=== PATIENT | female | born 2000 | race African-American/Black ===

== ENCOUNTER 2021-03-13 20:12 | Emergency (ER) | payer MEDICAID, OTHER ==
--- NOTE | 2021-03-13 20:31 | Diagnostic Imaging Report ---
EXAM: Foot 3 view right. INDICATION: Right heel pain. COMPARISON: None. FINDINGS: No fracture or malalignment. Soft tissue shadows are unremarkable. IMPRESSION: Negative right foot radiographs. Dictated by: Dictated on workstation # [id number]
[2021-03-13 21:03] VITALS: BP 140/89
--- NOTE | 2021-03-13 21:06 | ED Lower Extremity ---
General Chief Complaint: Lower Extremity Stated Complaint: RT FOOT HEEL PAIN Nursing Triage Note: Pt complaining of right heel/foot pain. Pt states the pain started after her basketball game tonight and that it hurts to walk. Pt denies any injury Source: patient Exam Limitations: no limitations History of Present Illness Date Seen by Provider: Mar 13, 2021 Time Seen by Provider: 20:15 Initial Comments Patient is a 20-year-old female who presents with right ankle sprain well playing basketball. She reports tenderness pain and swelling over the hindfoot with pain on palpation and weightbearing. She denies direct trauma or injury. This occurred just prior to ED arrival. Denies ankle, ríos or knee pain. No other symptoms or complaints Onset: just prior to arrival Pain/Injury Location: right foot Method of Injury: sports injury Modifying Factors: Improves With Other Allergies and Home Medications Allergies Coded Allergies: Penicillins (Verified Allergy, Unknown, 03/13/21) Patient Home Medication List Home Medication List Reviewed: Yes Review of Systems Constitutional: no symptoms reported Musculoskeletal: other (R Foot pain) Past [place]-Ayqlqw-Wueois Hx Patient Social History Tobacco Use?: No Use of E-Cig and/or Vaping dev: No Substance use?: No Alcohol Use?: No Pt feels they are or have been: No Physical Exam Vital Signs Vital Signs - First Documented 03/13/21 20:16 Temp 36.4 Pulse 88 Resp 16 B/P (MAP) 140/89 (106) Pulse Ox 100 O2 Delivery Room Air Capillary Refill : Less Than 3 Seconds Height, Weight, BMI Height: '" Weight: lbs. oz. kg; BMI Method: General Appearance: no apparent distress Feet: right foot pain, right foot soft tissue tenderness Neurologic/Psychiatric: alert, oriented x 3 Skin: normal color Progress/Results/Core Measures Results/Orders My Orders Orders - IRIS VALDAEZ DO Foot 3 View Right (03/13/21 20:18) Vital Signs/I&O 03/13/21 20:16 Temp 36.4 Pulse 88 Resp 16 B/P (MAP) 140/89 (106) Pulse Ox 100 O2 Delivery Room Air Blood Pressure Mean: 106 Departure Communication (Admissions) X-ray right foot: No obvious fracture per radiology report Soft tissue pain/swelling right foot. Recommendations are supportive care with PCP follow-up as needed. Impression Primary Impression: Right foot sprain Disposition: 01 HOME, SELF-CARE Condition: Stable Departure-Patient Inst. Decision time for Depature: 21:11 Patient Instructions: Foot Sprain (DC) Add. Discharge Instructions: Please wear Rakesh wrap, orthopedic shoe and take ibuprofen for pain. Avoid sports until cleared by your primary care physician or pet trainer. All discharge instructions reviewed with patient and/or family. Voiced understanding. IRIS VALADEZ DO Mar 13, 2021 21:06
== END 2021-03-13 21:20 | disposition home or self-care (01) ==
LOC: ER FS 20:14
DX: S93.601A Unspecified sprain of right foot, initial encounter (principal); W09.8XXA Fall on or from other playground equipment, initial encounter; Y93.67 Activity, basketball
CPT/HCPCS: 73630

== ENCOUNTER 2022-05-11 16:06 | Emergency (ER) | payer MEDICAID ==
[~2022-05-11] VITALS: Ht 167.7 cm; Wt 79.4 kg
[2022-05-11 16:10] VITALS: BP 120/81
--- NOTE | 2022-05-11 16:18 | ED EENT ---
History of Present Illness General Chief Complaint: Ear Problems Stated Complaint: RIGHT EARACHE History of Present Illness Date Seen by Provider: May 11, 2022 Time Seen by Provider: 16:13 Initial Comments 22-year-old female presents with right ear pain, right pain in her neck with some swollen lymph nodes. She reports that started last night. No sore throat, no fevers no chills no nausea vomiting cough or other systemic complaints. Allergies and Home Medications Allergies Coded Allergies: Penicillins (Verified Allergy, Unknown, 03/13/21) Patient Home Medication List Home Medication List Reviewed: Yes Review of Systems Review of Systems Constitutional: No chills, No fever Ears: Pain Nose: no symptoms reported Mouth: no symptoms reported Throat: no symptoms reported Respiratory: No cough, No short of breath Cardiovascular: No chest pain, No palpitations Gastrointestinal: No abdominal pain, No nausea, No vomiting Musculoskeletal: no symptoms reported Skin: no symptoms reported Physical Exam Height, Weight, BMI Height: '" Weight: lbs. oz. kg; BMI Method: General Appearance: WD/WN, no apparent distress Eyes: bilateral eye normal inspection Ears: bilateral ear TM normal Mouth/Throat: normal mouth inspection Neck: lymphadenopathy (R), tender lateral Cardiovascular: normal peripheral pulses, regular rate, rhythm Respiratory: lungs clear, normal breath sounds Gastrointestinal: non tender, soft Neurologic/Psychiatric: alert, normal mood/affect, oriented x 3 Skin: normal color, warm/dry Progress/Results/Core Measures Progress Progress Note : Progress Note Patient with swollen lymph nodes along anterior cervical chain right side. I wi ll start her on some antibiotics. Patient stable and discharged Departure Impression Primary Impression: Lymphadenitis, acute Disposition: 01 HOME, SELF-CARE Condition: Stable Departure-Patient Inst. Referrals: NO,LOCAL PHYSICIAN (PCP/Family) Primary Care Physician Patient Instructions: Lymphadenitis (DC) Add. Discharge Instructions: Please follow-up with your primary care provider in 7 days to ensure resolution of your infection and further evaluation if not cleared All discharge instructions reviewed with patient and/or family. Voiced understanding. Scripts Azithromycin (Azithromycin) 250 Mg Tablet 500 MG PO DAILY for 5 Days, #10 TAB 0 Refills Prov: BROCK DELACRUZ DO 05/11/22 BROCK DELACRUZ DO May 11, 2022 16:18
[2022-05-11] MEDS ORDERED: AZIT250T12 PO (16:21)
== END 2022-05-11 16:22 | disposition home or self-care (01) ==
LOC: EDUNIT# 16:06 → ER FS 16:08
DX: L04.9 Acute lymphadenitis, unspecified (principal); Z88.0 Allergy status to penicillin
CPT/HCPCS: 99282

== ENCOUNTER 2022-05-11 20:24 | Emergency (ER) | payer MEDICAID ==
[~2022-05-11] VITALS: Ht 165.1 cm; Wt 80.7 kg
[~2022-05-11 20:24] MED LIST: AZIT250T12 PO
[2022-05-11 20:27] VITALS: BP 126/84
[2022-05-11] MEDS ORDERED: KETOROLAC 30 MG/ML VIAL IM STA (20:31)
--- NOTE | 2022-05-11 20:38 | ED EENT ---
History of Present Illness General Chief Complaint: Ear Problems Stated Complaint: RIGHT EARACHE Nursing Triage Note: Patient was seen in the ER earlier today for the same complaint. Patient states that she was given antibiotics and she has had 1 dose. Patient states that she is not getting any better and she is having pain in the right ear. Patient took Tylenol 15 minutes prior to arrival. Patients last Ibuprofen dose was last night. History of Present Illness Date Seen by Provider: May 11, 2022 Time Seen by Provider: 20:30 Initial Comments 22-year-old female presents with right ear pain. Patient was seen by me this afternoon and prescribed antibiotic for lymph adenitis. Patient had a negative exam for your infection at that time. Patient is taken 1 dose of antibiotics and took Tylenol 15 minutes prior to arrival but states that the pain is just not better so she came back in. No reports of fevers chills nausea vomiting. Please see previous note for further HPI Allergies and Home Medications Allergies Coded Allergies: Penicillins (Verified Allergy, Unknown, 03/13/21) Patient Home Medication List Home Medication List Reviewed: Yes Azithromycin (Azithromycin) 250 Mg Tablet, 500 MG PO DAILY Prescribed by: BROCK DELACRUZ on 05/11/22 1621 Review of Systems Review of Systems Constitutional: No chills, No fever Ears: See HPI Nose: no symptoms reported Mouth: no symptoms reported Throat: no symptoms reported Respiratory: no symptoms reported Cardiovascular: no symptoms reported Gastrointestinal: no symptoms reported Past [place]-Cpdnjs-Oqpdgd Hx Patient Social History Tobacco Use?: No Substance use?: No Alcohol Use?: No Pt feels they are or have been: No Physical Exam Vital Signs Vital Signs - First Documented 05/11/22 20:27 Temp 37.0 Pulse 81 Resp 16 B/P (MAP) 126/84 (98) Pulse Ox 98 O2 Delivery Room Air Height, Weight, BMI Height: '" Weight: lbs. oz. kg; 29.00 BMI Method: General Appearance: WD/WN, no apparent distress Ears: bilateral ear canal normal, bilateral ear TM normal Neck: lymphadenopathy (R) Cardiovascular: normal peripheral pulses, regular rate, rhythm Respiratory: normal breath sounds Gastrointestinal: non tender, soft Neurologic/Psychiatric: alert, normal mood/affect, oriented x 3 Skin: normal color, warm/dry Progress/Results/Core Measures Results/Orders My Orders Orders - BROCK DELACRUZ DO Ketorolac Injection (Toradol Injection) (05/11/22 20:31) Vital Signs/I&O 05/11/22 20:27 Temp 37.0 Pulse 81 Resp 16 B/P (MAP) 126/84 (98) Pulse Ox 98 O2 Delivery Room Air Blood Pressure Mean: 98 Departure Impression Primary Impression: Lymphadenitis, acute Disposition: 01 HOME, SELF-CARE Condition: Stable Departure-Patient Inst. Referrals: NO,LOCAL PHYSICIAN (PCP/Family) Primary Care Physician Add. Discharge Instructions: 800 mg of ibuprofen every 6-8 hours alternated with the 1000 mg of Tylenol every 8 hours. Follow-up with your primary care provider if symptoms have not resolved once antibiotics are finished. Antibiotics do not work immediately and take time to take effect. All discharge instructions reviewed with patient and/or family. Voiced understanding. BROCK DELACRUZ DO May 11, 2022 20:37
== END 2022-05-11 20:45 | disposition home or self-care (01) ==
LOC: EDUNIT# 20:24 → ER FS 20:26
DX: L04.0 Acute lymphadenitis of face, head and neck (principal); Z28.310 Unvaccinated for COVID-19
CPT/HCPCS: 99284